=== PATIENT | female | born 1970 | race Caucasian/White ===

== ENCOUNTER 2022-05-01 17:47 | Emergency (ER) | payer OTHER, MEDICAID ==
[~2022-05-01] VITALS: Ht 162.6 cm; Wt 109.4 kg
[2022-05-01 17:53] VITALS: BP 115/65
--- NOTE | 2022-05-01 17:59 | NUR ---
CORRECTIONAL NURSE VAUGHN AT BEDSIDE FOR EVAL
[2022-05-01] MEDS ORDERED: CETI10CA6 PO (18:06)
[2022-05-01] MEDS ORDERED: IBUP-2213 PO (18:06)
[2022-05-01] MEDS ORDERED: PROM118S5 PO (18:06)
--- NOTE | 2022-05-01 18:07 | NUR ---
51 Y/O FEMALE BIB SELF C/O COUGH, CONGESTION X 1 WEEK AND GUZMAN X TODAY. COVID TESTED NEGATIVE 2 DAYS AGO. DENIES ANY SOB, ABD PAIN, NVD. NKA PMH: DENIES
--- NOTE | 2022-05-01 18:17 | NUR ---
SWABS HANDED TO LAB
--- NOTE | 2022-05-01 18:17 | NUR ---
Patient discharged with v/s stable. Written and verbal after care instructions ABOUT UPPER RESPIRATORY INFECTION given and explained. Patient alert, oriented and verbalized understanding of instructions. Ambulatory with steady gait. All questions addressed prior to discharge. ID band removed. Patient advised to follow up with PMD. Rx of CETERIZINE, MOTRIN AND PROMETHAZINE DM given. Patient educated on indication of medication including possible reaction and side effects. Opportunity to ask questions provided and answered.
== END 2022-05-01 18:17 | disposition home or self-care (01) ==
LOC: MED 17:47
DX: J06.9 Acute upper respiratory infection, unspecified (principal); Z20.822 Contact with and (suspected) exposure to COVID-19
CPT/HCPCS: 99283